=== PATIENT | male | born 1990 | race Caucasian/White ===

== ENCOUNTER 2021-10-15 19:06 | Inpatient (IN) ==
[2021-10-15] MEDS ORDERED: Ondansetron 4 mg VIAL 2 MG/ML 2 ml VIAL IV ONE (19:48)
[2021-10-15] MEDS ORDERED: NS 0.9% 1000 ml BAG 1,000 ML IV ONE (19:49)
[2021-10-15] MEDS ORDERED: LORazepam 2 mg VIAL 1 ml ONE (19:55)
[2021-10-15] MEDS ORDERED: LORazepam 2 mg VIAL 1 ml IV PUSH SCH (20:00)
[2021-10-15] MEDS ORDERED: Lorazepam PYXIS KEY PRN (20:05)
[2021-10-15 20:25] LABS: ABS Lymphocytes 1.5 10^3/ul (1.0-4.8); ABS Monocytes 0.5 10^3/ul (0-0.8); ABS Neutrophils 2.4 10^3/ul (1.5-7.7); Eosinophil % 0.4 %; Hematocrit 41 % (42-52); Hemoglobin 13.9 g/dL (14.0-18.0); Lymphocyte % 34.1 %; Mean Corpuscular HGB Conc 34 g/dL (31-36); Mean Corpuscular Hemoglobin 30 pg (27-31); Mean Corpuscular Volume 90 fL (80-94); Mean Platelet Volume 8.2 fL (7.4-10.4); Nucleated Red Blood Cells % 0.1; Platelet Count 183 10^3/uL (150-450); Red Blood Count 4.62 10^6 /uL (4.18-5.48); Red Cell Distribution Width 14 % (10-15); White Blood Count 4.5 10^3/uL (3.5-10.8)
[2021-10-15 20:31] LABS: INR 1.06 (0.89-1.11)
[2021-10-15 21:00] LABS: ALT 50 U/L (7-52); AST 86 U/L (13-39); Albumin 4.7 g/dL (3.2-5.2); Albumin/Globulin Ratio 1.7 (1-3); Alcohol, S < 13 mg/dL (<13); Alkaline Phosphatase 109 U/L (35-149); Anion Gap 12 mmol/L (2-11); Blood Urea Nitrogen 9 mg/dL (6-24); CO2 Carbon Dioxide 28 mmol/L (22-32); Calcium 9.8 mg/dL (8.6-10.3); Chloride 98 mmol/L (101-111); Globulin 2.7 g/dL (2-4); Glucose 84 mg/dL (70-100); Lipase 33 U/L (11.0-82.0); Magnesium 1.5 mg/dL (1.9-2.7); Potassium 3.2 mmol/L (3.5-5.0); Sodium 138 mmol/L (135-145); Total Protein 7.4 g/dL (6.4-8.9); eGFR CKD-EPI 118.8 (>60)
[2021-10-15] MEDS ORDERED: Magnesium Sulfate 2 gm BAG 2 GM/50 ML BAG IVPB ONE (21:44)
[2021-10-15] MEDS ORDERED: Potassium Chlor 20 meq TAB.ER PO ONE (21:44)
[2021-10-16] MEDS ORDERED: Metoclopramide 5 MG/ML VIAL (10 mg) IV PRN (02:11)
[2021-10-16] MEDS ORDERED: Thiamine 100 MG/ML 2 ml VIAL 100 MG, Folic Acid IV 1 MG, Multiple Vitamin IV ADULT 10 M... IV ONE (02:12)
[2021-10-16 06:30] LABS: Albumin 3.8 g/dL (3.2-5.2); Albumin/Globulin Ratio 1.7 (1-3); Calcium 8.6 mg/dL (8.6-10.3); Globulin 2.2 g/dL (2-4); Magnesium 2.1 mg/dL (1.9-2.7); Potassium 3.6 mmol/L (3.5-5.0); Total Bilirubin 1.2 mg/dL (0.2-1.0); eGFR CKD-EPI 117.6 (>60)
[2021-10-16] MEDS ORDERED: Potassium Chlor 20 meq TAB.ER PO ONE (06:38)
[2021-10-16] MEDS: Multivitamins/Minerals TAB PO SCH (09:26)
[2021-10-16 09:54] LABS: Phosphorus 3.6 mg/dL (2.5-5.0)
[2021-10-16 12:02] LABS: Urine Benzodiazepine Screen None Detected (None Detect); Urine Cannabinoids Screen Presumptive Positive (None Detect); Urine Opiates Screen None Detected (None Detect)
[2021-10-16 12:13] LABS: Urine Appearance Clear; Urine Bilirubin 1+ (Small) (Negative); Urine Color Yellow; Urine Glucose Negative (Negative); Urine Ketones Negative (Negative)
[2021-10-16 12:14] LABS: Urine Blood Negative (Negative); Urine Nitrite Negative (Negative); Urine Protein Trace (Negative); Urine Specific Gravity 1.025 (1.005-1.030); Urine Urobilinogen 1.0 (Negative) (Negative)
[2021-10-16 12:26] LABS: Urine Bacteria 1+ (Absent); Urine Red Blood Cell Trace(0-2/hpf) (Absent); Urine Squamous Epithelial Cell Present (Absent); Urine White Blood Cell Trace(0-5/hpf) (Absent)
[2021-10-16] MEDS ORDERED: Calcium Carb (TUMS) 500 mg CHEW TAB PO PRN (23:44)
[2021-10-17 05:51] LABS: Calcium 8.4 mg/dL (8.6-10.3); Potassium 3.4 mmol/L (3.5-5.0); eGFR CKD-EPI 127.8 (>60)
[2021-10-17] MEDS ORDERED: Potassium Chlor 20 meq TAB.ER PO ONE ×2 (07:38→14:44)
[2021-10-17] MEDS: Multivitamins/Minerals TAB PO SCH (10:40)
[2021-10-18 05:58] LABS: Calcium 9.2 mg/dL (8.6-10.3); Magnesium 1.8 mg/dL (1.9-2.7); Potassium 3.7 mmol/L (3.5-5.0); eGFR CKD-EPI 125.6 (>60)
[2021-10-18] MEDS ORDERED: Magnesium Sulfate 2 gm BAG 2 GM/50 ML BAG IVPB ONE (07:42)
[2021-10-18] MEDS ORDERED: Potassium Chlor 20 meq TAB.ER PO ONE (07:42)
[2021-10-18] MEDS: Multivitamins/Minerals TAB PO SCH (10:13)
[2021-10-18] MEDS ORDERED: Nicotine PATCH 14 MG/24 HR PATCH TRANSDERM ONE (10:45)
[2021-10-18 16:31] VITALS: BP 135/86
== END 2021-10-18 13:00 | disposition home or self-care (01) | DRG 775 ==
LOC: EDHOLD 19:06 → ED 19:06 → SUATTDRO 23:17 → MEDTELE 10-16 01:08
PROVIDERS: ADMIT Internal Medicine; ATTEND Internal Medicine

== ENCOUNTER 2023-07-18 00:01 | Inpatient (IN) ==
[2023-07-18] MEDS: Ondansetron 4 mg VIAL 2 MG/ML 2 ml VIAL IV ONE ×2 (01:59→06:35)
[2023-07-18 06:46] LABS: ABS Basophils 0.1 10^3/uL (0.0-0.1); ABS Eosinophils 0.1 10^3/uL (0.0-0.5); ABS Lymphocytes 2.6 10^3/uL (1.0-4.8); ABS Monocytes 0.7 10^3/uL (0.0-1.1); ABS Neutrophils 3.9 10^3/uL (1.5-7.6); Eosinophil % 1.7 %; Hematocrit 37.7 % (38-53); Lymphocyte % 35.7 %; Mean Corpuscular Hemoglobin 28.8 pg (27-33); Mean Corpuscular Hgb Conc 34.4 g/dL (31-36); Mean Corpuscular Volume 83.7 fL (80-97); Mean Platelet Volume 7.1 fL (7.5-11.2); Platelet Count 278 10^3/uL (150-450); Red Blood Count 4.51 10^6/uL (4.06-5.63); Red Cell Distribution Width 13.9 % (12-17); White Blood Count 7.4 10^3/uL (3.6-10.2)
[2023-07-18 07:19] LABS: ALT 35 U/L (7-52); AST 49 U/L (13-39); Acetaminophen < 15 mcg/mL; Albumin 4.3 g/dL (3.2-5.2); Albumin/Globulin Ratio 1.7 (1-3); Alcohol, S 75 mg/dL (<13); Alkaline Phosphatase 90 U/L (35-149); Anion Gap 14 mmol/L (2-16); Blood Urea Nitrogen 16 mg/dL (6-24); CO2 Carbon Dioxide 25 mmol/L (22-32); Calcium 8.5 mg/dL (8.6-10.3); Chloride 104 mmol/L (101-111); Creatinine, Serum 0.72 mg/dL (0.67-1.17); Globulin 2.5 g/dL (2-4); Glucose 90 mg/dL (70-100); Potassium 3.7 mmol/L (3.5-5.0); Salicylate < 2.50 mg/dL (<30); Sodium 143 mmol/L (135-145); Total Bilirubin 0.3 mg/dL (0.2-1.0); Total Protein 6.8 g/dL (6.4-8.9); eGFR CKD-EPI 123.7 (>60)
[2023-07-18 07:33] LABS: TSH Ultra Thyroid Stim Horm 2.41 mcIU/mL (0.34-5.60)
[2023-07-18 08:05] LABS: Urine Appearance Turbid; Urine Bilirubin Negative (Negative); Urine Blood Negative (Negative); Urine Color Yellow; Urine Glucose Negative (Negative); Urine Ketones Negative (Negative); Urine Nitrite Negative (Negative); Urine Protein Trace (Negative); Urine Specific Gravity 1.034 (1.002-1.030); Urine Urobilinogen Negative (Negative)
[2023-07-18 08:13] LABS: Urine Bacteria Absent /HPF (Absent); Urine Red Blood Cell Trace(0-2/hpf) /HPF (0-Trace); Urine Squamous Epithelial Cell Present /HPF (Absent); Urine White Blood Cell 2+(11-20/hpf) /HPF (0-Trace)
[2023-07-18 08:21] LABS: Urine Benzodiazepine Screen Presumptive Positive (None Detect); Urine Cannabinoids Screen Presumptive Positive (None Detect); Urine Opiates Screen None Detected (None Detect)
[2023-07-18] MEDS ORDERED: Lorazepam PYXIS KEY PRN (10:39)
[2023-07-18] MEDS: LORazepam 2 mg VIAL 1 ml IV PUSH ONE (11:07)
[2023-07-18] MEDS ORDERED: Al Hydrox/Mg Hydrox/Simet LIQ 30 ML UDC PO PRN ×2 (11:40→14:08)
[2023-07-19 08:42] LABS: HDL Cholesterol 56.1 mg/dL
[2023-07-19] MEDS: Vitamin THERAPEUTIC TAB PO SCH (09:18)
[2023-07-19] MEDS: DIPHENHYDRAMINE 50 MG PO (20:53)
[2023-07-20 08:14] VITALS: BP 139/92
== END 2023-07-20 13:40 | disposition home or self-care (01) | DRG 775 ==
LOC: ED 00:01 → EDHOLD 11:50 → BSU 12:59
PROVIDERS: ADMIT Psychiatry & Neurology Addiction Psychiatry; ATTEND Student in an Organized Health Care Education/Training Program